=== PATIENT | female | born 2000 | race Caucasian/White ===

== ENCOUNTER 2022-08-04 09:24 | Emergency (ER) | payer MEDICAID ==
[~2022-08-04] VITALS: Ht 172.7 cm; Wt 60.0 kg
[2022-08-04 09:26] VITALS: BP 124/72; PULSE 80; RESP 18; TEMP 98.7; O2SAT 99
[2022-08-04] MEDS ORDERED: MAGNESIUM/ALUMINUM HYDROXIDE/SIMETHICONE 30ML UDC PO ONE (09:45)
[2022-08-04 10:27] LABS: HEMATOCRIT. 39.1 % (36.0-48.0); HEMOGLOBIN. 12.8 g/dL (12.0-16.0); MEAN CORPUSCULAR HEMOGLOBIN 27.4 pg (28.0-32.0); MEAN CORPUSCULAR VOLUME 83.9 fL (81.0-99.0); MEAN PLATELET VOLUME 8.7 fl (7.4-10.4); PLATELET 230 x1000/uL (130-400); RED BLOOD CELL COUNT 4.66 mill/uL (4.2-5.4); RED CELL DISTRIBUTION WIDTH 16.4 % (11.6-14.6)
[2022-08-04 10:35] LABS: CHLORIDE 106 mEq/L (98-107)
[2022-08-04 10:44] LABS: ETHANOL BLOOD < 10 mg/dL (-10)
[2022-08-04] MEDS ORDERED: ONDANSETRON 4MG ODT PO ONE (10:45)
[2022-08-04 11:05] LABS: *AMPHETAMINES SCREEN URINE NEGATIVE (NEGATIVE); *BARBITURATES SCREEN URINE NEGATIVE (NEGATIVE); *BENZODIAZEPINES SCREEN URINE NEGATIVE (NEGATIVE); *COCAINE SCREEN URINE NEGATIVE (NEGATIVE); METHADONE URINE SCREEN NEGATIVE (NEGATIVE); OPIATES URINE SCREEN NEGATIVE (NEGATIVE); PHENCYCLIDINE URINE SCREEN NEGATIVE (NEGATIVE)
[2022-08-04 11:07] LABS: HCG SCREEN NEGATIVE
[2022-08-04 11:25] LABS: CANNABINOID URINE SCREEN PRESUMTIVE POSITIVE (NEGATIVE)
[2022-08-04 11:47] LABS: CLARITY URINE CLEAR (CLEAR); COLOR URINE YELLOW (YELLOW); KETONES URINE 2+ (NEGATIVE); LEUKOCYTE ESTERASE URINE NEGATIVE (NEGATIVE); NITRITE URINE NEGATIVE (NEGATIVE); OCCULT BLOOD URINE NEGATIVE (NEGATIVE); PH URINE >=9.0 (4.5-8.0); PROTEIN URINE NEGATIVE (NEGATIVE); SPECIFIC GRAVITY URINE 1.021 (1.005-1.030); UROBILINOGEN URINE 0.2 E.U./dL (0.2-1.0)
[2022-08-04 12:10] LABS: PLATELET ESTIMATE NORMAL
[2022-08-04] MEDS ORDERED: OMEP40CA20 MT (14:03)
[2022-08-04] MEDS ORDERED: ONDA4TAB50 MT (14:03)
== END 2022-08-04 14:41 | disposition home or self-care (01) ==
LOC: ER 09:24
DX: R10.33 Periumbilical pain (principal); R11.2 Nausea with vomiting, unspecified
CPT/HCPCS: 80053; 80305; 81003; 81025; 80320; 84703; 83690; 85025; 36415; 74176; 99284; Q0162; G0480